=== PATIENT | female | born 1940 | race Caucasian/White ===

== ENCOUNTER → 2016-12-08 | Outpatient (CLI) | payer OTHER ==
[~2016-12-08] MED LIST: CALCTAB5 PO; FSM70 PO; LEVO75TA36 PO; MULT-506 PO; OMEG10007 PO; SIMV40TA2 PO
[2016-12-08 18:17] LABS: BASO % 0.5 %; BASO ABS # 0.04 K/uL (0-0.2); COMPLETE YES; EOS % 3.5 %; IG% 0.3 %; LYMPH % 24.4 %; LYMPH ABS # 1.83 K/uL (1.2-3.4); MEAN CELL VOLUME 88.6 fL (80-100); MEAN CORPUSCULAR HEMOGLOBIN 30.5 pg (25-34); MEAN CORPUSCULAR HGB CONC 34.4 g/dl (32-36); MONO % 11.7 %; NEUT % 59.6 %; PLATELET COUNT 320 K/uL (130-400); RED BLOOD COUNT 4.63 M/uL (4.2-5.4); WHITE BLOOD COUNT 7.49 K/uL (4.8-10.8)
[2016-12-08 18:25] LABS: BLOOD UREA NITROGEN 25 mg/dl (7-18); BUN/CREATININE RATIO 32.5 (10-20); CALCIUM 9.1 mg/dl (8.5-10.1); CARBON DIOXIDE 24 mmol/L (21-32); CHLORIDE 108 mmol/L (98-107); CREATININE 0.76 mg/dl (0.60-1.20); GLUCOSE 83 mg/dl (70-99); MAGNESIUM 2.6 mg/dl (1.8-2.4); POTASSIUM 4.2 mmol/L (3.5-5.1); SODIUM 141 mmol/L (136-145)
[2016-12-08 18:36] LABS: ALB/GLOB RATIO 1.2 (0.9-2); ALKALINE PHOSPHATASE 71 U/L (45-117); ALT/SGPT 30 U/L (12-78); AST/SGOT 24 U/L (15-37)
== END | disposition home or self-care (01) ==
LOC: C.LABSPEC 17:34
PROVIDERS: ATTEND Internal Medicine
DX: M62.81 Muscle weakness (generalized) (principal); R42 Dizziness and giddiness; R53.83 Other fatigue

== ENCOUNTER → 2016-12-16 | Outpatient (CLI) | payer OTHER ==
[~2016-12-16] MED LIST changes: +GADAVIST IV PRN
--- NOTE | 2016-12-16 13:15 | DIAGNOSTIC IMAGING REPORT ---
Brain MRI WITH AND WITHOUT CONTRAST HISTORY: Leg weakness. Balance problems. TECHNIQUE: Multiplanar multisequence MRI of the brain was performed both before and after the intravenous administration of contrast. COMPARISON STUDY: None. FINDINGS: There is no mass, hematoma, midline shift, or acute infarct. The paranasal sinuses are clear. The mastoid air cells are clear. The ventricles and sulci demonstrate moderate age-related involutional changes. Scattered foci of T2 hyperintensity seen within the periventricular and subcortical white matter are nonspecific but suggestive of mild microvascular ischemic changes. The major vascular flow voids at the skull base are well-maintained. There is a small developmental venous anomaly in the right cerebral hemisphere. This is considered to be a normal variant. IMPRESSION: No acute intracranial abnormality. Moderate atrophy and mild microvascular ischemic change. Electronically signed by: Zoltan Izquierdo M.D. 12/16/2016 1:13 PM Dictated Date/Time: 12/16/2016 1:04 PM
== END | disposition home or self-care (01) ==
LOC: C.MRI 11:11
PROVIDERS: ATTEND Internal Medicine
DX: R42 Dizziness and giddiness (principal); M62.81 Muscle weakness (generalized)

== ENCOUNTER → 2017-01-29 | Outpatient (CLI) | payer OTHER ==
[~2017-01-29] MED LIST changes: -GADAVIST IV PRN
[2017-01-29 15:03] LABS: CHOLESTEROL 159 mg/dl (0-200); CHOLESTEROL/HDL RATIO 4.1; HDL CHOLESTEROL 39 mg/dl; TRIGLYCERIDES 153 mg/dl (0-150); VERY LOW DENSITY LIPOPROT CALC 31 mg/dl
== END | disposition home or self-care (01) ==
LOC: C.LABSPEC 14:16
PROVIDERS: ATTEND Internal Medicine
DX: E78.5 Hyperlipidemia, unspecified (principal)

== ENCOUNTER → 2017-05-12 | Outpatient (CLI) | payer OTHER ==
[2017-05-12 13:43] LABS: BLOOD UREA NITROGEN 22 mg/dl (7-18); BUN/CREATININE RATIO 26.5 (10-20); CALCIUM 9.9 mg/dl (8.5-10.1); CARBON DIOXIDE 25 mmol/L (21-32); CHLORIDE 108 mmol/L (98-107); CHOLESTEROL 209 mg/dl (0-200); CREATININE 0.82 mg/dl (0.60-1.20); GLUCOSE 91 mg/dl (70-99); POTASSIUM 5.1 mmol/L (3.5-5.1); SODIUM 139 mmol/L (136-145)
[2017-05-12 13:51] LABS: HDL CHOLESTEROL 42 mg/dl; TRIGLYCERIDES 208 mg/dl (0-150); VERY LOW DENSITY LIPOPROT CALC 42 mg/dl
== END | disposition home or self-care (01) ==
LOC: C.LABSPEC 10:13
PROVIDERS: ATTEND Internal Medicine
DX: E03.9 Hypothyroidism, unspecified (principal); I10 Essential (primary) hypertension; E78.5 Hyperlipidemia, unspecified; E55.9 Vitamin D deficiency, unspecified

== ENCOUNTER → 2017-05-13 | Outpatient (CLI) | payer OTHER | END | disposition home or self-care (01) | LOC: C.LABSPEC 12:08 | PROVIDERS: ATTEND Internal Medicine | DX: Z12.11 Encounter for screening for malignant neoplasm of colon (principal) ==

== ENCOUNTER → 2017-06-02 | Outpatient (CLI) | payer OTHER ==
--- NOTE | 2017-06-02 15:30 | MAMMOGRAPHY REPORT ---
BILATERAL DIGITAL SCREENING MAMMOGRAM WITH CAD: 06/02/2017 CLINICAL HISTORY: Routine screening. Patient has no complaints. TECHNIQUE: Current study was also evaluated with a Computer Aided Detection (CAD) system. Bilateral CC and MLO views were obtained. COMPARISON: Comparison is made to exams dated: 05/22/2016 mammogram, 05/20/2015 mammogram, 05/14/2014 ma mmogram, 05/03/2013 mammogram, 05/02/2012 mammogram, and 04/29/2011 mammogram - [facility] nter. BREAST COMPOSITION: There are scattered areas of fibroglandular density in both breasts. FINDINGS: No suspicious masses, calcifications, or areas of architectural distortion are noted in ei ther breast. There has been no significant interval change compared to prior exams. Bilateral asymme tries and scattered bilateral benign-appearing calcifications are not significantly changed. IMPRESSION: ACR BI-RADS CATEGORY 2: BENIGN There is no mammographic evidence of malignancy. A 1 year screening mammogram is recommended. The pa tient will receive written notification of the results. Approximately 10% of breast cancers are not detected with mammography. A negative mammographic report should not delay biopsy if a clinically suggestive mass is present. Sweta Mukherjee M.D. ah/:06/02/2017 11:08:56 Bullet Maker: Elena IGLESIAS)(M), [facility] letter sent: Normal 1/2 BI-RADS Code: ACR BI-RADS Category 2: Benign
== END | disposition home or self-care (01) ==
LOC: C.MAMM 10:26
PROVIDERS: ATTEND Internal Medicine
DX: Z12.31 Encounter for screening mammogram for malignant neoplasm of breast (principal)

== ENCOUNTER → 2017-12-15 | Outpatient (CLI) | payer OTHER ==
--- NOTE | 2017-12-15 12:19 | DIAGNOSTIC IMAGING REPORT ---
TWO VIEW CHEST CLINICAL HISTORY: Cough. FINDINGS: PA and lateral chest radiographs are compared to study dated and correlated with chest CT dated 09/11/2008. The cardiomediastinal silhouette is unremarkable. There is atherosclerotic calcification of the thoracic aorta. Suture material projects over the right upper lobe. Volume loss in the right lung indicates previous surgical resection. Chronic interstitial thickening is similar to previous. No airspace consolidation or pleural effusion is identified. There is no pneumothorax. The skeletal structures are osteopenic. Chronic postoperative/posttraumatic change is identified in the right sided ribs. Advanced arthritic change is seen in the shoulders, left greater than right. Calcified joint bodies are suggested in the left shoulder. IMPRESSION: 1. No active disease in the chest. 2. Postoperative change is again seen in the right upper lobe. Electronically signed by: Antony Mcneil M.D. 12/15/2017 12:18 PM Dictated Date/Time: 12/15/2017 12:15 PM
== END | disposition home or self-care (01) ==
LOC: C.RAD1850 12:05
PROVIDERS: ATTEND Internal Medicine
DX: R05 Cough (principal)

== ENCOUNTER → 2018-01-10 | Outpatient (CLI) | payer OTHER ==
--- NOTE | 2018-01-10 11:18 | DIAGNOSTIC IMAGING REPORT ---
LUMBAR SPINE W/O CONTRAST CLINICAL HISTORY: 77 years-old Female presenting with R20.0 [id number] Neurogenic [id number] Bilateral leg weakness, neurogenic claudication. TECHNIQUE: Multisequence, multiplanar MR imaging of the lumbar spine was performed without the use of intravenous contrast. IV contrast: None. COMPARISON: None. FINDINGS: Localizer images: Prominent cyst at the lower pole of the right kidney. Straightening of normal lumbar lordosis likely due to multilevel degenerative changes. 5 mm of anterolisthesis of L2 on L3. Trace retrolisthesis of L3 on L4 and L4 on L5. Sclerotic endplate changes evident at L4-5. Fatty endplate changes evident at L3-4. Lesions in L4 likely represent benign hemangioma though one of which is fat poor and therefore indeterminate. Benign hemangioma also noted in T12 and L1. Diffuse intervertebral disc desiccation with significant height loss most severe at L3-4 though also present at L2-3, L4-5, and L5-S1 to lesser degrees. Multilevel degenerative changes further detailed below: L1-2: No significant neural foraminal or spinal canal stenosis. L2-3: Disc bulge and anterolisthesis in combination with facet arthropathy mildly narrow the spinal canal. Mild bilateral neural foraminal narrowing. L3-4: Minimal disc bulge does not significantly narrow the spinal canal. Mild right neural foraminal narrowing. L4-5: Disc bulge is eccentrically more severe on the right resulting in mass effect on the exiting right L4 nerve root at the level of the far lateral right neural foramen. Moderate bilateral neural foraminal narrowing. L5-S1: Disc bulge and facet arthropathy result in moderate bilateral neural foraminal narrowing. No significant spinal canal stenosis. Spinal cord is in good position at the superior endplate of L1. Cauda equina normal in morphology. Paraspinal musculature demonstrates mild fatty atrophy. Right renal cyst again noted. IMPRESSION: 1. Multilevel degenerative changes of the lumbar spine with varying degrees of neural foraminal narrowing most severe at L4-5. Disc bulge at L4-5 is eccentrically more severe on the right resulting in mass effect on the exiting right L4 nerve root at the level of the far right lateral neural foramen. No significant spinal canal stenosis. Electronically signed by: Víctor Gaviria M.D. 01/10/2018 11:16 AM Dictated Date/Time: 01/10/2018 11:10 AM
== END | disposition home or self-care (01) ==
LOC: C.MRI 10:13
PROVIDERS: ATTEND Physician Assistant
DX: R20.0 Anesthesia of skin (principal); M48.062 Spinal stenosis, lumbar region with neurogenic claudication; R29.898 Other symptoms and signs involving the musculoskeletal system; M51.26 Other intervertebral disc displacement, lumbar region